=== PATIENT | female | born 1955 | race Caucasian/White ===

== ENCOUNTER 2016-12-03 00:23 | Emergency (ER) | payer OTHER ==
[2016-12-03 00:36] VITALS: RESP 18; TEMP 97.9
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
[2016-12-03] MEDS ORDERED: IBUPROFEN 600 MG TAB PO ONE (00:59)
[2016-12-03] MEDS ORDERED: ACETAMINOPHEN 325 MG TAB PO ONE (03:09)
[2016-12-03] MEDS ORDERED: CYCLOBENZAPRINE 10MG PREPACK#3 BTL TAKEHOME ONE ×2 (03:44→03:51)
[2016-12-03 04:01] VITALS: BP 115/72; PULSE 81; O2SAT 94
== END 2016-12-03 04:00 | disposition home or self-care (01) ==
LOC: EDUNIT#
DX: S16.1XXA Strain of muscle, fascia and tendon at neck level, initial encounter (principal); Z87.891 Personal history of nicotine dependence; V73.5XXA Driver of bus injured in collision with car, pick-up truck or van in traffic accident, initial encounter; Y92.410 Unspecified street and highway as the place of occurrence of the external cause; Y93.89 Activity, other specified